=== PATIENT | female | born 1995 | race Hispanic/Latino ===

== ENCOUNTER 2025-02-06 19:09 | Emergency (ER) | payer BC, MEDICAID ==
[~2025-02-06] VITALS: Ht 149.9 cm; Wt 103.4 kg
[2025-02-06 19:43] LABS: APPEARANCE,URINE CLOUDY (CLEAR); GLUCOSE, URINE (UA) NEGATIVE (NEGATIVE); LEUKOCYTE ESTERASE ,URINE 75 Leu/uL (NEGATIVE); NITRATE,URINE NEGATIVE (NEGATIVE); OCCULT BLOOD,URINE +- (TRACE) (NEGATIVE)
[2025-02-06 19:45] LABS: ADD UA MICROSCOPIC YES
[2025-02-06] MEDS: 0.9%NACL 1000ML 1,000 ML IV STA (19:52)
[2025-02-06 19:54] LABS: IMMATURE GRANULOCYTE ABSOLUTE 0.03 K/uL (0-1); NUCLEATED RED BLOOD CELLS 0.0 % (0.0-0.19); PLATELET COUNT (AUTO) 294 K/uL (130-400); RED BLOOD CELL COUNT(AUTO) 4.92 MIL/uL (4.00-5.50); RED CELL DISTRIBUTION WIDTH 11.9 % (11.0-15.5); WHITE BLOOD COUNT (AUTO) 9.0 K/uL (4.8-10.8)
[2025-02-06 20:02] LABS: OTHER CASTS, URINE 2 /LPF (None Seen); SQUAMOUS EPITHELIAL CELL,UR FEW /HPF (0-2); UNCLASSIFIED CRYSTAL 2 /HPF (None Seen)
[2025-02-06 20:04] LABS: CREATININE 0.6 mg/dL (0.5-1.0); GLOMERULAR FILTR. RATE CALC 126.0 mL/min (>90); GLUCOSE,RANDOM 111.0 mg/dL (70-105); SODIUM SERUM 141.0 mmol/L (136-145); UREA NITROGEN, BLOOD 5.0 mg/dL (7-18)
[2025-02-06 20:15] LABS: HCG,QUANTITATIVE 0.0 mIU/mL (0-5)
--- NOTE | 2025-02-06 20:20 | ERN ---
ED Note History of Present Illness Stated Complaint: C/O ABD PAIN RADIATING TO BACK Chief Complaint: Abdominal Pain Time Seen by MD: 19:13 Time Seen by Midlevel: 19:14 Dictation: 29-year-old female coming in with complaints of epigastric pain and right upper quadrant pain onset yesterday. Patient states she has had this pain intermittently for the last couple of years however recently had a ultrasound of her right upper quadrant done at [facility] last night and was told she had gallbladder stones and was discharge. Patient states after being discharged the pain returned and decided to come to the ER and be re-evaluated. Denies any fever, nausea or vomiting. Allergies: Coded Allergies: No Known Allergies (Unverified Allergy, Unknown, 02/06/25) Past Medical History Past Medical History: No Pertinent History Surgical History: None LMP: Jan 31, 2025 Review of System Dictation Constitutional: Negative for fever,chills, and weight loss Eyes: Negative for injury, pain,redness, and discharge ENT: Negative for injury,pain or swelling Cardiovascular: Negative for chest pain, palpitations, and edema Respiratory: Negative for shortness of breath, cough, and wheezing, Abdomen/GI: Abdominal pain, nausea, vomiting, no diarrhea, and no constipation Back: Negative for injury and pain : Negative for injury, bleeding and discharge MS/Extremity: Negative for injury and deformity Skin: Negative for rash, and discoloration Neuro: Negative for headache, weakness, numbness, tingling, and seizure Psych: Negative for suicide ideation, homicidal ideation, and hallucinations Review of Systems: was completed Initial Vital Sign VS Vital Signs Date Time Temp Pulse Resp B/P (MAP) Pulse Ox O2 Delivery O2 Flow Rate FiO2 02/06/25 19:13 98.2 108 20 141/99 99 Room Air 02/06/25 19:43 0 21 Physical Exam Dictation General: awake, alert, NAD Head/Face: Normocephalic, atraumatic Eyes: PERRL, EOMI, vision at baseline ENT: oral cavity clear, TMs clear, no signs of infection Neck: Trachea midline, supple, no nuchal rigidity Cardiovascular: RRR, normal S1/S2, No MRGs, no JVD Respiratory: CTAB, no respiratory distress, No rales or wheezes Abdomen: Soft, non-tender, non-distended, normal bowel sounds, no guarding or rebound. Skin: Warm, dry, normal turgor, no rash MS/Extremity: Pulses equal, no cyanosis, neurovascular intact, FROM Neuro: COAx4, GCS 15, strength 5/5, CN 2-12 intact, normal cerebellar exam, normal gait, Psych: Normal behavior, mood, and affect normal Results (Laboratory/Radiology) Laboratory/Radiology Laboratory Tests Test 02/06/25 19:23 02/06/25 19:40 Urine Color LIGHT-YELLOW (YELLOW) Urine Appearance CLOUDY (CLEAR) H Urine pH 5.5 (5.0-8.0) Urine Specific [place] 1.007 (1.001-1.031) Urine Protein NEGATIVE mg/dL (NEGATIVE) Urine Glucose (UA) NEGATIVE mg/dL (NEGATIVE) Urine Ketones NEGATIVE mg/dL (NEGATIVE) Urine Occult Blood +- (TRACE) (NEGATIVE) H Urine Nitrate NEGATIVE (NEGATIVE) Urine Bilirubin NEGATIVE mg/dL (NEGATIVE) Urine Urobilinogen 0.2 mg/dL (0.2-1.0) Urine Leukocyte Esterase 75 [place]/uL (NEGATIVE) H Urine RBC 2-5 /HPF (0-1) H Urine WBC 6-10 /HPF (0-1) H Urine Squamous Epithelial Cells FEW /HPF (0-2) Urine Other Crystals (Auto) 2 /HPF (None Seen) Urine Bacteria FEW /HPF (None Seen) Urine Other Casts 2 /LPF (None Seen) White Blood Count 9.0 K/uL (4.8-10.8) Red Blood Count 4.92 MIL/uL (4.00-5.50) Hemoglobin 14.2 g/dL (12.0-16.0) Hematocrit 42.5 % (36-48) Mean Corpuscular Volume 86.4 fL (79-99) Mean Corpuscular Hemoglobin 28.9 pg (27.0-33.0) Mean Corpuscular Hemoglobin Concent 33.4 g/dL (32.0-36.0) Red Cell Distribution Width 11.9 % (11.0-15.5) Platelet Count 294 K/uL (130-400) Mean Platelet Volume 9.5 fL (7.5-10.5) Immature Granulocyte % (Auto) 0.3 % (0-1) Neutrophils (%) (Auto) 74.6 % (40.0-77.0) Lymphocytes (%) (Auto) 18.4 % (21.0-51.0) L Monocytes (%) (Auto) 5.4 % (3.0-13.0) Eosinophils (%) (Auto) 0.9 % (0.0-8.0) Basophils (%) (Auto) 0.4 % (0.0-5.0) Neutrophils # (Auto) 6.7 K/uL (1.8-7.7) Lymphocytes # (Auto) 1.7 K/uL (1.0-4.8) Monocytes # (Auto) 0.5 K/uL (0.1-1.0) Eosinophils # (Auto) 0.08 K/uL (0.00-0.70) Basophils # (Auto) 0.04 K/uL (0.00-0.20) Absolute Immature Granulocyte (auto 0.03 K/uL (0-1) Nucleated Red Blood Cells 0.0 % (0.0-0.19) Sodium Level 141 mmol/L (136-145) Potassium Level 3.8 mmol/L (3.5-5.1) Chloride Level 104 mmol/L (101-111) Carbon Dioxide Level 26 mmol/L (21-32) Blood Urea Nitrogen 5 mg/dL (7-18) L Creatinine 0.6 mg/dL (0.5-1.0) Glomerular Filtration Rate Calc 126 mL/min (>90) Random Glucose 111 mg/dL (70-105) H Total Calcium 8.7 mg/dL (8.5-10.1) Total Bilirubin 0.3 mg/dL (0.2-1.0) Direct Bilirubin 0.1 mg/dL (0.0-0.3) Aspartate Amino Transf (AST/SGOT) 20 U/L (10-37) Alanine Aminotransferase (ALT/SGPT) 35 U/L (12-78) Alkaline Phosphatase 59 U/L (50-136) Total Protein 7.8 g/dL (6.0-8.3) Albumin 4.0 g/dL (3.5-5.0) Lipase 38 U/L (16-77) Human Chorionic Gonadotropin, Quant 0 mIU/mL (0-5) Labs Reviewed?: Yes ED Course ED Course Orders Procedure Category Date Status Time Cbc With Differential LAB 02/06/25 Complete 19:23 Basic Metabolic Panel LAB 02/06/25 Complete 19:23 Urinalysis Profile LAB 02/06/25 Complete 19:23 Hcg,Quantitative LAB 02/06/25 Complete 19:23 Us Abdominal Ruq\Ltd US 02/06/25 Taken 19:23 0.9%Nacl 1000ml (Ns PHA 02/06/25 In Process 1000ml) 19:23 Ondansetron 4mg Inj PHA 02/06/25 Complete (Zofran 4mg Inj) 19:30 Ketorolac PHA 02/06/25 Complete Tromethamine 15mg/Ml 19:30 Culture Urine KATIE 02/06/25 In Process 19:47 Lipase LAB 02/06/25 Complete 20:14 Hepatic Function Panel LAB 02/06/25 Complete 20:14 Current Medications Medications (Trade) Dose Ordered Sig/Abisai Route PRN Reason Start Time Stop Time Status Last Admin Dose Admin Ketorolac Tromethamine (toRADol) 15 mg ONCE ONCE IV 02/06/25 19:30 02/06/25 19:31 DC 02/06/25 19:51 Ondansetron HCl (zoFRAN 4MG INJ) 4 mg ONCE ONCE IVP 02/06/25 19:30 02/06/25 19:31 DC 02/06/25 19:50 Sodium Chloride 1,000 ml @ 100 mls/hr Q10H STAT IV 02/06/25 19:23 02/07/25 05:22 02/06/25 19:52 Vital Signs Date Time Temp Pulse Resp B/P (MAP) Pulse Ox O2 Delivery O2 Flow Rate FiO2 02/06/25 19:43 98.8 94 18 130/74 100 Room Air* 0 21 02/06/25 19:13 98.2 108 20 141/99 99 Room Air Medical Decision Making MDM MDM: 29-year-old female coming in with complaints of epigastric pain and right upper quadrant pain onset yesterday. Patient states she has had this pain intermittently for the last couple of years however recently had a ultrasound of her right upper quadrant done at [facility] last night and was told she had gallbladder stones and was discharge. Patient states after being discharged the pain returned and decided to come to the ER and be re-evaluated. Denies any fever, nausea or vomiting. Lab work is unremarkable. Patient does not have any leukocytosis, no transaminitis and lipase within normal range. Preliminary report of the ultrasound shows multiple stones, wall measuring 3 mm, CBD is5 mm. Discussed with the patient on findings. Educated that she needs to follow up with a PCP and with a general surgeon to have this gallbladder removed as an outpatient. Educated that I will discharge her with the pain medication and antiemetics and educated to return to the hospital if she is unable to keep any medication or food down despite being on the medications. Patient verbalized understanding, answered all questions Differential diagnosis: Cholecystitis, cholelithiasis, pancreatitis Rationale: Tests considered and ordered secondary to shared decision making include: Previous outside records reviewed: Old ER visits. Risk of complication and/or morbidity or mortality of patient management: None Medications-Per medication reconciliation Need for hospitalization: Patient does not meet criteria for hospitalization. Need for emergency major/minor surgery: No There are no social concerns with this patient. Prescription drug management Prescriptions will include symptomatic care Patient's prior external medical records from other ER visits were reviewed by me as indicated. Prior testing and results from previous visits were reviewed. Prior tests were taken into account with medical decision making and resource utilization, independent historian/historians were used to obtain complete medical history. I independently interpreted the test that were performed, results were reviewed by me and considered findings on radiology if ordered. Medical management and examination interpretation discussions were had by me with other qualified healthcare professionals as indicated for the patient's care. DX & DISP Disposition: Discharge Departure Impression: Primary Impression: Cholelithiases Additional Impression: Biliary colic Condition: Stable Additional Instructions: Your ultrasound showed you have multiple gallbladder stones however gallbladder wall is within normal range. Your lab work looks normal. Your liver and pancreatic exams are within normal range. Avoid these flares by avoiding any spicy, greasy, or fried foods. Follow up with your primary doctor in 1-2 days. It also make an appointment with a general surgeon for elective surgery. Referrals: SELF,REFERRAL (PCP) IAN MELO MD Time of Disposition: 20:55 LILIAM ALEXIS [facility] Feb 06, 2025 20:20
[2025-02-06 20:35] LABS: ASPARTATE AMINOTRANSFERASE 20.0 U/L (10-37); TOTAL PROTEIN, SERUM 7.8 g/dL (6.0-8.3)
--- NOTE | 2025-02-06 21:18 | HMCIMG ---
EXAM: US Abdomen, Right Upper Quadrant. CLINICAL HISTORY: Right upper quadrant pain; history of gallstones. TECHNIQUE: Right upper quadrant sonography performed with image documentation. COMPARISON: None provided. FINDINGS: LIVER: Enlarged in size, measuring 16.1 cm with diffusely increased echogenicity suggestive of grade I fatty change. No focal hepatic mass is seen. GALLBLADDER: Multiple small intraluminal calculi are seen. Mild diffuse wall thickening measuring approximately 3 mm. No pericholecystic fluid. COMMON BILE DUCT: Normal in caliber. No dilation. PANCREAS: The visualized portions of the pancreas appear within normal limits. The distal pancreas is obscured by bowel gas. RIGHT KIDNEY: Unremarkable. Normal renal contours. No renal mass or calculus. No hydronephrosis. IMPRESSION: 1. Cholelithiasis with questionable acute cholecystitis. Recommend a HIDA scan for further evaluation. 2. Hepatomegaly with grade I fatty liver. /Dave
[2025-02-06 22:05] VITALS: BP 131/71; PULSE 87; RESP 18; TEMP 98.8; O2SAT 100
== END 2025-02-06 22:13 | disposition home or self-care (01) ==
LOC: EDH 19:09
DX: K80.20 Calculus of gallbladder without cholecystitis without obstruction (principal)
CPT/HCPCS: 99284; 96374; 76705; 96361; 96375; 80076; 80048; 84702; 83690; 85025; 87086; 81001; 36415; J1885; J7030; J2405

== ENCOUNTER 2025-03-05 23:23 | Inpatient (IN) | payer SELFPAY ==
[~2025-03-05] VITALS: Ht 149.9 cm; Wt 102.4 kg
[2025-03-05 23:52] LABS: APPEARANCE,URINE CLEAR (CLEAR); GLUCOSE, URINE (UA) NEGATIVE (NEGATIVE); LEUKOCYTE ESTERASE ,URINE 250 Leu/uL (NEGATIVE); NITRATE,URINE NEGATIVE (NEGATIVE); OCCULT BLOOD,URINE NEGATIVE (NEGATIVE)
[2025-03-05 23:53] LABS: HCG,QUALITATIVE URINE NEGATIVE (NEGATIVE)
[2025-03-05 23:55] LABS: SQUAMOUS EPITHELIAL CELL,UR MOD /HPF (0-2)
[2025-03-06] VITALS (19 sets, daily range): BP systolic 17–125; BP diastolic 60–89; PULSE 74–94; RESP 15–21; TEMP 97.7–98.2; O2SAT 97–99
[2025-03-06 00:44] LABS: IMMATURE GRANULOCYTE ABSOLUTE 0.03 K/uL (0-1); NUCLEATED RED BLOOD CELLS 0.0 % (0.0-0.19); PLATELET COUNT (AUTO) 297 K/uL (130-400); RED BLOOD CELL COUNT(AUTO) 4.91 MIL/uL (4.00-5.50); RED CELL DISTRIBUTION WIDTH 12.1 % (11.0-15.5); WHITE BLOOD COUNT (AUTO) 9.2 K/uL (4.8-10.8)
[2025-03-06 00:45] LABS: INR 0.99 (0.85-1.15)
[2025-03-06 00:53] LABS: CREATININE 0.6 mg/dL (0.5-1.0); GLOMERULAR FILTR. RATE CALC 126.0 mL/min (>90); GLUCOSE,RANDOM 150.0 mg/dL (70-105); SODIUM SERUM 134.0 mmol/L (136-145); UREA NITROGEN, BLOOD 7.0 mg/dL (7-18)
[2025-03-06 00:57] LABS: ASPARTATE AMINOTRANSFERASE 17.0 U/L (10-37); TOTAL PROTEIN, SERUM 8.2 g/dL (6.0-8.3)
[2025-03-06] MEDS ORDERED: CEPH500B PO (01:36)
--- NOTE | 2025-03-06 01:36 | ERN ---
General Chief Complaint: Abdominal Pain Stated Complaint: C/O RUQ PAIN WITH N X V Time Seen by MD: 23:29 History of Present Illness Initial Comments 49-year-old female came with abdominal pain. Allergies: Coded Allergies: No Known Allergies (Unverified Allergy, Unknown, 02/06/25) Past Medical History Past Medical History: No Pertinent History Past Surgical History: None Female( History) LMP: Feb 02, 2025 ROS Dictation Abdominal pain Physical Exam General Appearance: (+) no apparent distress Neck: (+) normal inspection, (+) supple Respiratory: (+) chest non-tender, (+) lungs clear Heart: (+) regular, (+) no gallop Gastrointestinal: (+) soft, (+) non-tender, (+) no organomegaly, (+) bowel sound present Results Laboratory and Microbiology Lab and Micro Result Laboratory Tests Test 03/05/25 23:41 03/05/25 23:59 Urine Color LIGHT-YELLOW (YELLOW) Urine Appearance CLEAR (CLEAR) Urine pH 6.0 (5.0-8.0) Urine Specific [place] 1.022 (1.001-1.031) Urine Protein NEGATIVE mg/dL (NEGATIVE) Urine Glucose (UA) NEGATIVE mg/dL (NEGATIVE) Urine Ketones NEGATIVE mg/dL (NEGATIVE) Urine Occult Blood NEGATIVE (NEGATIVE) Urine Nitrate NEGATIVE (NEGATIVE) Urine Bilirubin NEGATIVE mg/dL (NEGATIVE) Urine Urobilinogen 0.2 mg/dL (0.2-1.0) Urine Leukocyte Esterase 250 [place]/uL (NEGATIVE) H Urine RBC 2-5 /HPF (0-1) H Urine WBC 11-25 /HPF (0-1) H Urine Squamous Epithelial Cells MOD /HPF (0-2) Urine Bacteria None /HPF (None Seen) Urine HCG, Qualitative NEGATIVE (NEGATIVE) White Blood Count 9.2 K/uL (4.8-10.8) Red Blood Count 4.91 MIL/uL (4.00-5.50) Hemoglobin 14.4 g/dL (12.0-16.0) Hematocrit 42.3 % (36-48) Mean Corpuscular Volume 86.2 fL (79-99) Mean Corpuscular Hemoglobin 29.3 pg (27.0-33.0) Mean Corpuscular Hemoglobin Concent 34.0 g/dL (32.0-36.0) Red Cell Distribution Width 12.1 % (11.0-15.5) Platelet Count 297 K/uL (130-400) Mean Platelet Volume 10.5 fL (7.5-10.5) Immature Granulocyte % (Auto) 0.3 % (0-1) Neutrophils (%) (Auto) 78.7 % (40.0-77.0) H Lymphocytes (%) (Auto) 15.0 % (21.0-51.0) L Monocytes (%) (Auto) 5.0 % (3.0-13.0) Eosinophils (%) (Auto) 0.7 % (0.0-8.0) Basophils (%) (Auto) 0.3 % (0.0-5.0) Neutrophils # (Auto) 7.3 K/uL (1.8-7.7) Lymphocytes # (Auto) 1.4 K/uL (1.0-4.8) Monocytes # (Auto) 0.5 K/uL (0.1-1.0) Eosinophils # (Auto) 0.06 K/uL (0.00-0.70) Basophils # (Auto) 0.03 K/uL (0.00-0.20) Absolute Immature Granulocyte (auto 0.03 K/uL (0-1) Nucleated Red Blood Cells 0.0 % (0.0-0.19) Prothrombin Time 10.5 SEC (9.6-11.6) Prothromb Time International Ratio 0.99 (0.85-1.15) Activated Partial Thromboplast Time 27.7 SEC (26.3-35.5) Sodium Level 134 mmol/L (136-145) L Potassium Level 4.0 mmol/L (3.5-5.1) Chloride Level 101 mmol/L (101-111) Carbon Dioxide Level 26 mmol/L (21-32) Blood Urea Nitrogen 7 mg/dL (7-18) Creatinine 0.6 mg/dL (0.5-1.0) Glomerular Filtration Rate Calc 126 mL/min (>90) Random Glucose 150 mg/dL (70-105) H Lactic Acid Level 1.7 mmol/L (0.8-2.5) Total Calcium 9.1 mg/dL (8.5-10.1) Total Bilirubin 0.4 mg/dL (0.2-1.0) Direct Bilirubin 0.1 mg/dL (0.0-0.3) Aspartate Amino Transf (AST/SGOT) 17 U/L (10-37) Alanine Aminotransferase (ALT/SGPT) 39 U/L (12-78) Alkaline Phosphatase 59 U/L (50-136) Total Protein 8.2 g/dL (6.0-8.3) Albumin 4.0 g/dL (3.5-5.0) Lipase 38 U/L (16-77) Serum Test, Qualitative NEGATIVE (NEGATIVE) MDM MDM: Differential diagnosis: Rationale: Tests considered and ordered secondary to shared decision making include: Previous outside records reviewed: Old ER visits. Risk of complication and/or morbidity or mortality of patient management: None Medications-Per medication reconciliation Need for hospitalization: Patient does not meet criteria for hospitalization. Need for emergency major/minor surgery: No There are no social concerns with this patient. Prescription drug management Prescriptions will include symptomatic care Patient's prior external medical records from other ER visits were reviewed by me as indicated. Prior testing and results from previous visits were reviewed. Prior tests were taken into account with medical decision making and resource utilization, independent historian/historians were used to obtain complete medical history. I independently interpreted the test that were performed, results were reviewed by me and considered findings on radiology if ordered. Medical management and examination interpretation discussions were had by me with other qualified healthcare professionals as indicated for the patient's care. ED Course Orders Procedure Category Date Status Time Basic Metabolic Panel LAB 03/05/25 Complete 23:29 Hepatic Function Panel LAB 03/05/25 Complete 23:29 Cbc With Differential LAB 03/05/25 Complete 23:29 Lactic Acid LAB 03/05/25 Complete 23:29 Lipase LAB 03/05/25 Complete 23:29 ,Urine Test LAB 03/05/25 Complete 23:29 Testing, LAB 03/05/25 Complete Serum Hcg 23:29 Pt And Ptt LAB 03/05/25 Complete 23:29 Urinalysis LAB 03/05/25 Complete W/Microscopic 23:29 Ondansetron 4mg Inj PHA 03/05/25 Complete (Zofran 4mg Inj) 23:30 Morphine 2mg Syg PHA 03/05/25 Complete (Morphine 2mg Syg) 23:30 Famotidine 20mg Vial PHA 03/05/25 Complete (Pepcid 20mg Vial) 23:30 Culture Urine KATIE 03/05/25 In Process 23:54 Current Medications Medications (Trade) Dose Ordered Sig/Abisai Route PRN Reason Start Time Stop Time Status Last Admin Dose Admin Famotidine (Pepcid 20mg Vial) 20 mg ONCE ONCE IV 03/05/25 23:30 03/05/25 23:35 DC Morphine Sulfate (morPHINE 2MG SYG) 2 mg ONCE ONCE IVP 03/05/25 23:30 03/05/25 23:35 DC Ondansetron HCl (zoFRAN 4MG INJ) 4 mg ONCE ONCE IVP 03/05/25 23:30 03/05/25 23:35 DC Vital Signs Date Time Temp Pulse Resp B/P (MAP) Pulse Ox O2 Delivery O2 Flow Rate FiO2 03/05/25 23:25 97.7 93 20 145/90 99 Room Air DX & DISP Disposition: Discharge Departure Impression: Primary Impression: UTI (urinary tract infection) Condition: Stable Scripts Cephalexin Monohydrate (Keflex) 500 Mg Cap 500 MG PO BID for 7 Days, #14 CAP Prov: BAUDILIO PERALES MD 03/06/25 Referrals: SELF,REFERRAL (PCP) BAUDILIO PERALES MD Mar 06, 2025 01:36
[2025-03-06] MEDS: FAMOTIDINE 20MG VIAL IV ONE (02:08)
--- NOTE | 2025-03-06 04:06 | HMCIMG ---
EXAM: US Abdomen (limited). CLINICAL HISTORY: r/o acute sintia TECHNIQUE: Real-time ultrasound of the abdomen (limited) with image documentation. COMPARISON: 02/06/2025. FINDINGS: Mildly enlarged liver measures 17.7 cm craniocaudally. Increased echogenicity of the liver parenchyma, compatible with fatty liver. There are multiple calculi within the gallbladder. Gallbladder wall thickening measures up to 3 mm. Hydropic gallbladder measures up to 11 cm in length. The CBD is normal in caliber and measures up to 5 mm in diameter. Partially visualized pancreas due to the overlying bowel gases. The right kidney measures 9.9 x 4.4 x 4.8 cm. It is normal in size and texture. IMPRESSION: Cholelithiasis with questionable acute cholecystitis. Recommend a HIDA scan for further evaluation. Mild fatty liver. Compared to the prior study, there is no significant interval change. /Dave
--- NOTE | 2025-03-06 04:46 | HP ---
[facility] HISTORY [facility] PHYSICAL Date of Service: Mar 06, 2025 Time of Service: 04:36 PCP: Self-referral HISTORY OF PRESENT ILLNESS: This is a 29-year-old female with no pertinent medical history who presents to the ED for complaints of abdominal pain located around right upper quadrant associated with nausea and vomiting x1.Patient reports she had a [place] sandwich from [employer] prior to having abdominal pain she said.Patient states she was here last 02/06/2025 for similar complaints and an abdominal ultrasound was done and showed cholelithiasis and hepatomegaly with grade 1 fatty liver and was sent home today the pain came back and radiates to her back,so she decided to come for evaluation .Patient states she has a normal bowel movement today. Seen and examined patient in the ED awake,alert and coherent,appears uncomfortable continue to complain of abdominal pain.Patient denies fever,chills,chest pain,palpitation,cough and shortness of breath. Latest vital signs temperature 97.7, heart rate 62, blood pressure 98/53 saturation 99% on room air. Labs: CBC unremarkable. Sodium 134, glucose 150 for enzymes normal serum test negative. Urinalysis consistent with urinary tract infection. Ultrasound result revealed cholelithiasis with questionable acute cholecystitis recommend a HIDA scan for further evaluation. Mild fatty liver. While in the ER patient received morphine 2 mg IV, Zofran 4 mg IV and famotidine 20 mg IV. We will admit patient for further medical management. REVIEW OF SYSTEMS CONSTITUTIONAL: Denies fevers, chills, or night sweats. No unintentional weight loss reported. NEUROLOGICAL: Denies headache, amaurosis fugax, motor weakness, sensory deficit, vertigo/spinning sensation, gait abnormalities, or tremors. ENT: No hearing loss, otalgia, otorrhea, rhinitis, rhinorrhea, hoarseness, or sore throat. CARDIOVASCULAR: Denies any exertional angina, dyspnea on exertion, orthopnea, paroxysmal nocturnal dyspnea, palpitations, life-threatening arrhythmias, claudication. PULMONARY: Denies any shortness of breath, cough, phlegm/sputum, hemoptysis, pleuritic chest pain. SLEEP: Denies morning headaches, daytime somnolence or napping. Denies difficulty falling asleep, staying asleep, waking from sleep. Denies knowledge of snoring. GASTROINTESTINAL: Complain of abdominal pain located around right upper quadrant associated with nausea and vomiting x1 Denies any type of dysphagia to either liquids or solids. Denies pyrosis, early satiety, abdominal pain, diarrhea, constipation, or changes in stool consistency or caliber. Denies coffee-ground emesis, hematemesis, hematochezia, or melanotic stools. GENITOURINARY: Denies frequency, urgency, nocturia, hematuria or incontinence (Storage/Irritative symptoms.) Low urinary stream, straining to void, urinary intermittency or hesitancy, splitting of the voiding stream, terminal dribbling. ENDOCRINOLOGIC: Denies polyuria, polydipsia, polyphagia or heat/cold intolerances. HEMATOLOGIC: Denies thrombophilia/previous clots, or coagulopathy/bleeding diso rders. ONCOLOGIC: Denies personal history of malignancy. DERMATOLOGIC: Denies rashes or pruritus. PSYCHIATRIC: Denies any suicidal or homicidal ideation. Denies hallucinations. PAST MEDICAL HISTORY: [ Pertinent medical history ] PAST SURGICAL HISTORY: [ No pertinent surgical history ] PAST SOCIAL HISTORY: [ Patient lives with . Patient admits to social three beers every other weekend. Patient denies cigarette and recreational drug use.] FAMILY HISTORY: [Noncontributory ] Coded Allergies: No Known Allergies (Unverified Allergy, Unknown, 02/06/25) PHYSICAL EXAM GENERAL APPEARANCE: The patient is awake, alert, and oriented, in no acute cardiopulmonary distress. NEUROLOGICAL: Cranial nerves II-XII grossly intact. Motor is 5/5 in bilateral upper and lower extremities proximal to distal. No sensory deficits. HEENT: Face is symmetric. Pupils are equal and reactive. Extraocular movements are intact. NECK: Supple. No JVD. No thyromegaly. No submental, submandibular, pre- /postauricular, occipital or supraclavicular lymphadenopathy. CHEST: Normal chest expansion. No Telemetry. LUNGS: Absence of any rales, rhonchi or any wheezing. CARDIOVASCULAR: Regular. S1 and S2 normal. No appreciable rubs, murmurs or gallops. ABDOMEN: Abdominal tenderness around right upper quadrant on palpation and radiates to the back Soft and nondistended. There is no rebound, voluntary guarding, or rigidity. : Deferred. No P[place]. EXTREMITIES: Non-edematous and not cyanotic. No clubbing. Good capillary refill. SKIN: No skin breakdown. Vital Sign (Last 24 Hours) 03/05/25 03/06/25 23:25 04:04 Temp 97.7 Pulse 62 Resp 18 B/P (MAP) 98/53 Pulse Ox 99 O2 Delivery Room Air* O2 Flow Rate 0 FiO2 21 LABS: Laboratory: Test 03/05/25 23:59 03/05/25 23:41 Range/Units White Blood Count 9.2 4.8-10.8 K/uL Red Blood Count 4.91 4.00-5.50 MIL/uL Hemoglobin 14.4 12.0-16.0 g/dL Hematocrit 42.3 36-48 % Mean Corpuscular Volume 86.2 79-99 fL Mean Corpuscular Hemoglobin 29.3 27.0-33.0 pg Mean Corpuscular Hemoglobin Concent 34.0 32.0-36.0 g/dL Red Cell Distribution Width 12.1 11.0-15.5 % Platelet Count 297 130-400 K/uL Mean Platelet Volume 10.5 7.5-10.5 fL Immature Granulocyte % (Auto) 0.3 0-1 % Neutrophils (%) (Auto) 78.7 H 40.0-77.0 % Lymphocytes (%) (Auto) 15.0 L 21.0-51.0 % Monocytes (%) (Auto) 5.0 3.0-13.0 % Eosinophils (%) (Auto) 0.7 0.0-8.0 % Basophils (%) (Auto) 0.3 0.0-5.0 % Neutrophils # (Auto) 7.3 1.8-7.7 K/uL Lymphocytes # (Auto) 1.4 1.0-4.8 K/uL Monocytes # (Auto) 0.5 0.1-1.0 K/uL Eosinophils # (Auto) 0.06 0.00-0.70 K/uL Basophils # (Auto) 0.03 0.00-0.20 K/uL Absolute Immature Granulocyte (auto 0.03 0-1 K/uL Nucleated Red Blood Cells 0.0 0.0-0.19 % Prothrombin Time 10.5 9.6-11.6 SEC Prothromb Time International Ratio 0.99 0.85-1.15 Activated Partial Thromboplast Time 27.7 26.3-35.5 SEC Sodium Level 134 L 136-145 mmol/L Potassium Level 4.0 3.5-5.1 mmol/L Chloride Level 101 101-111 mmol/L Carbon Dioxide Level 26 21-32 mmol/L Blood Urea Nitrogen 7 7-18 mg/dL Creatinine 0.6 0.5-1.0 mg/dL Glomerular Filtration Rate Calc 126 >90 mL/min Random Glucose 150 H 70-105 mg/dL Lactic Acid Level 1.7 0.8-2.5 mmol/L Total Calcium 9.1 8.5-10.1 mg/dL Total Bilirubin 0.4 0.2-1.0 mg/dL Direct Bilirubin 0.1 0.0-0.3 mg/dL Aspartate Amino Transf (AST/SGOT) 17 10-37 U/L Alanine Aminotransferase (ALT/SGPT) 39 12-78 U/L Alkaline Phosphatase 59 50-136 U/L Total Protein 8.2 6.0-8.3 g/dL Albumin 4.0 3.5-5.0 g/dL Lipase 38 16-77 U/L Serum Test, Qualitative NEGATIVE NEGATIVE Urine Color LIGHT-YELLOW YELLOW Urine Appearance CLEAR CLEAR Urine pH 6.0 5.0-8.0 Urine Specific [place] 1.022 1.001-1.031 Urine Protein NEGATIVE NEGATIVE mg/dL Urine Glucose (UA) NEGATIVE NEGATIVE mg/dL Urine Ketones NEGATIVE NEGATIVE mg/dL Urine Occult Blood NEGATIVE NEGATIVE Urine Nitrate NEGATIVE NEGATIVE Urine Bilirubin NEGATIVE NEGATIVE mg/dL Urine Urobilinogen 0.2 0.2-1.0 mg/dL Urine Leukocyte Esterase 250 H NEGATIVE [place]/uL Urine RBC 2-5 H 0-1 /HPF Urine WBC 11-25 H 0-1 /HPF Urine Squamous Epithelial Cells MOD 0-2 /HPF Urine Bacteria None None Seen /HPF Urine HCG, Qualitative NEGATIVE NEGATIVE DIAGNOSTICS / RADIOLOGY: [ ] ASSESSMENT: Acute cholelithiasis with acute cholecystitis per CT POA Acute urinary tract infection POA Hyperglycemia POA Morbid obesity POA Mild fatty liver per CT POA PLAN: We will admit patient in medical surgical We will keep nothing by mouth We will start on NS @ 100 ml / hr x one bag and re evaluate Start Rocephin 1 g IV b.i.d. for empiric coverage We will start on famotidine 20 mg IV daily for GI prophylaxis We will replace electrolytes as needed per protocol We will add prn medication for fever,pain,cough , nausea and vomiting We will request for HIDA scan We will seek general surgery consultation We will request labs in am Further orders to follow depending on above results Case discussed with attending physician and came up with above treatment and plan of care. ADVANCED CARE PLANNING 1. Which of the following were discussed? Hospice Care - No Therapeutic options - Yes Advance Directives - No Other discussions - 2. Discussed with who? Patient 3. Voluntary nature of this service was explained to the patient? Yes 4. Amount of time spent - ___20 min____ 5. Reviewed by Physician? (if this service was performed by NPP) Yes Patient seen and examined by me. Agree with note by [employer] INSERTER SEE ADDITIONAL ORDERS PER CHART DISCUSSED WITH NURSING STAFF MIKAELA FRENCH LAUNDRY AIDE Mar 06, 2025 04:46
[2025-03-06] MEDS: 0.9%NACL 1000ML 1,000 ML IV SCH (05:04)
[2025-03-06] MEDS ORDERED: DICY20TA3 PO (05:46)
[2025-03-06] MEDS: FAMOTIDINE 20MG VIAL IV SCH (10:32)
[2025-03-06 10:56] LABS: NUCLEATED RED BLOOD CELLS 0.0 % (0.0-0.19); PLATELET COUNT (AUTO) 290.0 K/uL (130-400); RED BLOOD CELL COUNT(AUTO) 4.84 MIL/uL (4.00-5.50); RED CELL DISTRIBUTION WIDTH 12.0 % (11.0-15.5); WHITE BLOOD COUNT (AUTO) 8.4 K/uL (4.8-10.8)
[2025-03-06 11:08] LABS: CREATININE 0.5 mg/dL (0.5-1.0); GLOMERULAR FILTR. RATE CALC 132.0 mL/min (>90); GLUCOSE,RANDOM 105.0 mg/dL (70-105); SODIUM SERUM 136.0 mmol/L (136-145); UREA NITROGEN, BLOOD 6.0 mg/dL (7-18)
[2025-03-06 11:11] LABS: ASPARTATE AMINOTRANSFERASE 16.0 U/L (10-37); TOTAL PROTEIN, SERUM 7.5 g/dL (6.0-8.3)
--- NOTE | 2025-03-06 11:35 | NUR ---
DCP: HOME sw met with pt and family at bedside. Pt lives with Giuliano Pena [phone] in home they own. Pt is currently switching jobs and will start new job at [employer] next week. Currently has no insurance. PCP is her uncle Dr Manpreet Johnson in [facility]. No DMe or HH, independent of all ADLS. [place] home at [place]
--- NOTE | 2025-03-06 16:20 | CONS ---
CONSULT NOTE: Consulting physician: Dr. Chowdhury Consulting service: General surgery Reason for consultation: Acute cholecystitis History of present illness: This is a 29-year-old female consulted to surgery after presenting to the hospital with the abdominal discomfort. Patient initially diagnosed earlier this month with cholelithiasis and followed up with our surgical group with scheduled surgery later this month but due to current flare-up presented to the hospital for further evaluation. Initial imaging concerning for possible cholecystitis. Patient has undergone 1st portion of HIDA scan. Patient remains NPO. Patient with right upper quadrant pain on physical exam. WBCs unremarkable. Patient's NPO on IV fluids and IV antibiotics Medical history: Known cholelithiasis Surgical history: Review of systems: General: No Fever, No Chills, No Night Sweats, No Fatigue, No Malaise, No Appetite, No Other HEENT: No Head Aches, No Visual Changes, No Eye Pain, No Ear Pain, No Dysphasi a, No Sinus Congestion, No Post Nasal Drip, No Sore Throat, No Other Pulmonary: No Dyspnea, No Cough, No Pleuritic Chest Pain, No Other Cardiovascular: No: Chest Pain, Palpitations, Orthopnea, Paroxysmal No Dyspnea, Edema, Lt Headedness, Other Gastrointestinal: No: Nausea, Vomiting, Diarrhea, Constipation, Melena, Hematochezia, Other Genitourinary: No Dysuria, No Frequency, No Incontinence, No Hematuria, No Retention, No Other Musculoskeletal: No: other, neck pain, shoulder pain, arm pain, back pain, hand pain, leg pain, foot pain Skin: No Urticaria, No Rash, No Other Neurological: No: Weakness, Numbness, Incoordination, Change in speech, Confusion, Seizures, Other Physical exam: General: Awake alert and oriented Heart: Regular rate and rhythm} Lungs: [Clear to auscultation no distress Abdomen: Right upper quadrant pain Assessment: This is a 29-year-old female with concerns of acute cholecystitis Plan: At this point in time patient will be scheduled for cholecystectomy today with Dr. Segovia Patient to remain NPO Surgical team to follow patient closely Patient informed of surgical procedure risks and benefits and agrees with surgical intervention at this time. Surgical case has been discussed with my supervising physician in the above plan was formulated and agreed upon Supervising physicians evaluation the patient be done within next 24 hours We appreciate the hospitalist team for us to participate in patient's care. Greater than 55 minutes of time spent patient, reviewing chart, working on documentation AI HAYDEN Jr. PAC Mar 06, 2025 16:20
--- NOTE | 2025-03-06 16:24 | HMCIMG ---
Examination Hepatobiliary study History 29 YEAR OLD FEMALE INPATIENT STAT STAT STAT PATIENT HX: RUQ PAIN ORDER DX: SUSPECTED GALLSTONES US 03/06/25 LIVER 17.7cm, MULTIPLE STONES, CBD 5mm Tc99m Choletec ( 6.5mCi ) ADMINISTERED VIA IV PHYSICIAN NEEDS RESULTS FOR SURGERY FOR TODAY (Hx) / suspected gsllstones with cholecystits, Statics (DICOM Hx) (DICOM Hx) Technique 6.5 mCi Tc-99m mebrofenin were administered intravenously followed by acquisition of planar images of the abdomen. Findings Following administration of radiotracer, there is prompt appearance of normal hepatic contours, followed by appearance of activity in unremarkable appearing bile ducts. There is nonvisualization of the gallbladder reflecting acute cholecystitis. IMPRESSION: 1. Nonvisualization of the gallbladder, consistent with acute cholecystitis. /[place]
--- NOTE | 2025-03-06 19:28 | NUR ---
PT TAKEN TO OR FOR SURGERY. SPOUSE TOOK PURSE WITH PERSONAL BELONGING WITH HIM
[2025-03-06] MEDS: INDOCYANINE GREEN 25 MG VIAL IJ ONE (20:00)
[2025-03-06] MEDS ORDERED: PROMETHAZINE HCL 25 MG/ML 1ML AMPULE IM PRN (20:00)
[2025-03-06] MEDS ORDERED: MIDAZOLAM HCL 1 MG/ML 2ML VIAL ONE (20:17)
[2025-03-06] MEDS ORDERED: LIDOCAINE HCL MPF 1% 5ML VIAL ONE (20:18)
--- NOTE | 2025-03-06 21:30 | OP ---
Operative Note: DATE OF PROCEDURE: 03/06/25 PROCEDURE PERFORMED: Robotic cholecystectomy. PREOPERATIVE DIAGNOSIS: Acute cholecystitis POSTOPERATIVE DIAGNOSIS: same ANESTHESIA: General endotracheal. SURGEON: Mary Segovia MD DEVICE LEFT IN PLACE: None. FLUIDS AND BLOOD PRODUCTS: Per anesthesia report. SPECIMENS REMOVED: Gallbladder. COMPLICATIONS: None immediate. PATIENT CONDITION: Stable. Blood loss: Minimal DESCRIPTION OF PROCEDURE: The patient was brought to the operating room and placed on the operating table in a supine position. Once general endotracheal anesthesia was achieved the patient's abdomen is prepped and draped in sterile fashion. Had then proceeded to create a transverse incision at the left upper quadrant at aldridge's point and under direct visualization went through the abdominal wall with a 5 mm Optiview entered the abdominal cavity and obtain a pneumoperitoneum. After obtaining pneumoperitoneum we placed under direct visualization to 8 mm trocars one in the far right flank and the other one in the right lower abdomen. I then switched out the 5 mm trocar in the left upper quadrant for 8 mm trocar. And then placed another 8 mm trocar in the left hemiabdomen to the left of the midline through the rectus muscle for the camera. Place the patient in reverse Trendelenburg and rotated to the left. Brought the robot over top of the patient right and docked the robot. There was significant amount of adhesions to the gallbladder that were taken down with the cautery with dissection. I had to decompress the gallbladder so that we were able to retract it. I then proceeded to retract the gallbladder from the fundus and infundibulum and started our dissection of the hilum. We bluntly dissected the hilum to expose the cystic duct and cystic artery and once we had a critical view for safety, which was confirmed with firefly technology. We proceeded to place two clips in the cystic duct proximally and distally. We divided and then did the same with our cystic artery. We then proceeded to remove the gallbladder off the liver bed using Bovie cautery. Once this was done, we then proceeded to evaluate the liver bed for hemostasis. We made sure there was no bile leaks or any bleeding. I then proceeded to bring the 5 mm Endo-Catch bag through the lateral right port. Placed the gallbladder within the bag . We then proceeded to remove the trocar in this area and dilated the muscle with a hemostat and proceeded to remove the gallbladder through this right lateral port. I then closed the muscle with a running 2-0 V lock suture. We then proceeded to undocked our all her instruments and the robot. Removed all the trocars from the abdominal wall confirmed no bleeding. the skin incisions were closed using skin stapler had an abscess a sterile dressing was applied. The patient tolerated the procedure well. All counts correct x2 at the end of the procedure MARY SEGOVIA MD Mar 06, 2025 21:30
[2025-03-07] VITALS (10 sets, daily range): BP systolic 94–111; BP diastolic 57–68; PULSE 66–110; RESP 16–20; TEMP 97.2–98.2; O2SAT 94–97
[2025-03-07 04:32] LABS: IMMATURE GRANULOCYTE ABSOLUTE 0.03 K/uL (0-1); NUCLEATED RED BLOOD CELLS 0.0 % (0.0-0.19); PLATELET COUNT (AUTO) 278 K/uL (130-400); RED BLOOD CELL COUNT(AUTO) 4.70 MIL/uL (4.00-5.50); RED CELL DISTRIBUTION WIDTH 12.3 % (11.0-15.5); WHITE BLOOD COUNT (AUTO) 10.7 K/uL (4.8-10.8)
[2025-03-07 04:46] LABS: ASPARTATE AMINOTRANSFERASE 35.0 U/L (10-37); CREATININE 0.7 mg/dL (0.5-1.0); GLOMERULAR FILTR. RATE CALC 121.0 mL/min (>90); GLUCOSE,RANDOM 168.0 mg/dL (70-105); SODIUM SERUM 135.0 mmol/L (136-145); TOTAL PROTEIN, SERUM 7.2 g/dL (6.0-8.3); UREA NITROGEN, BLOOD 8.0 mg/dL (7-18)
[2025-03-07 04:56] LABS: ERYTHROCYTE SEDIMENTATION RATE 19 MM/HR (0-20)
--- NOTE | 2025-03-07 12:35 | PN ---
[facility] PROGRESS NOTE Date of Service: Mar 07, 2025 Time of Service: 12:28 SUBJECTIVE: [Patient seen and evaluated this morning. She is status post robotic cholecystectomy for acute cholecystitis. She is ambulating in the hallway. Reports persistent abdominal pain, currently rated 10/10, but is tolerating her current clear liquid diet and has not had further episodes of nausea or vomit ing. Denies fever, chills, chest pain, shortness of breath, or new symptoms. No urinary complaints (denies dysuria, frequency, urgency, hematuria, or suprapubic pain). REVIEW OF SYSTEMS CONSTITUTIONAL: Denies fevers, chills, or night sweats. No unintentional weight loss reported. NEUROLOGICAL: Denies headache, amaurosis fugax, motor weakness, sensory deficit, vertigo/spinning sensation, gait abnormalities, or tremors. ENT: No hearing loss, otalgia, otorrhea, rhinitis, rhinorrhea, hoarseness, or sore throat. CARDIOVASCULAR: Denies any exertional angina, dyspnea on exertion, orthopnea, paroxysmal nocturnal dyspnea, palpitations, life-threatening arrhythmias, claudication. PULMONARY: Denies any shortness of breath, cough, phlegm/sputum, hemoptysis, pleuritic chest pain. SLEEP: Denies morning headaches, daytime somnolence or napping. Denies difficulty falling asleep, staying asleep, waking from sleep. Denies knowledge of snoring. GASTROINTESTINAL: Complain of abdominal pain located around right upper quadrant associated with nausea and vomiting x1 Denies any type of dysphagia to either liquids or solids. Denies pyrosis, early satiety, abdominal pain, diarrhea, constipation, or changes in stool consistency or caliber. Denies coffee-ground emesis, hematemesis, hematochezia, or melanotic stools. GENITOURINARY: Denies frequency, urgency, nocturia, hematuria or incontinence (Storage/Irritative symptoms.) Low urinary stream, straining to void, urinary intermittency or hesitancy, splitting of the voiding stream, terminal dribbling. ENDOCRINOLOGIC: Denies polyuria, polydipsia, polyphagia or heat/cold intolerances. HEMATOLOGIC: Denies thrombophilia/previous clots, or coagulopathy/bleeding disorders. ONCOLOGIC: Denies personal history of malignancy. DERMATOLOGIC: Denies rashes or pruritus. PSYCHIATRIC: Denies any suicidal or homicidal ideation. Denies hallucinations. PHYSICAL EXAM GENERAL APPEARANCE: The patient is awake, alert, and oriented, in no acute cardiopulmonary distress. NEUROLOGICAL: Cranial nerves II-XII grossly intact. Motor is 5/5 in bilateral upper and lower extremities proximal to distal. No sensory deficits. HEENT: Face is symmetric. Pupils are equal and reactive. Extraocular movements are intact. NECK: Supple. No JVD. No thyromegaly. No submental, submandibular, pre- /postauricular, occipital or supraclavicular lymphadenopathy. CHEST: Normal chest expansion. No Telemetry. LUNGS: Absence of any rales, rhonchi or any wheezing. CARDIOVASCULAR: Regular. S1 and S2 normal. No appreciable rubs, murmurs or gallops. ABDOMEN: Abdominal tenderness around right upper quadrant on palpation and radiates to the back Soft and nondistended. There is no rebound, voluntary guarding, or rigidity. : Deferred. No Pryor. EXTREMITIES: Non-edematous and not cyanotic. No clubbing. Good capillary refill. SKIN: No skin breakdown. Vital Signs (last 8hr) Date Time Temp Pulse Resp B/P (MAP) Pulse Ox O2 Delivery O2 Flow Rate FiO2 03/07/25 12:00 98.1 67 20 104/57 97 Room Air 03/07/25 08:16 98.1 105 19 106/67 94 Room Air LABS: WBC within normal limits Electrolytes: Sodium 134, glucose 150, otherwise unremarkable Urinalysis: Positive leukocyte esterase, WBCs 1125/hpf, moderate squamous epithelial cells, no bacteria seen Urine culture: [id number] CFU/mL Proteus species (sensitivities pending) Imaging: Post-op, no acute findings Laboratory: Test 03/07/25 04:21 03/06/25 10:47 03/05/25 23:59 03/05/25 23:41 Range/Units White Blood Count 10.7 # 4.8-10.8 K/uL Red Blood Count 4.70 4.00-5.50 MIL/uL Hemoglobin 13.7 12.0-16.0 g/dL Hematocrit 40.3 36-48 % Mean Corpuscular Volume 85.7 79-99 fL Mean Corpuscular Hemoglobin 29.1 27.0-33.0 pg Mean Corpuscular Hemoglobin Concent 34.0 32.0-36.0 g/dL Red Cell Distribution Width 12.3 11.0-15.5 % Platelet Count 278 130-400 K/uL Mean Platelet Volume 9.9 7.5-10.5 fL Immature Granulocyte % (Auto) 0.3 0-1 % Neutrophils (%) (Auto) 93.8 H 40.0-77.0 % Lymphocytes (%) (Auto) 5.1 L 21.0-51.0 % Monocytes (%) (Auto) 0.7 L 3.0-13.0 % Eosinophils (%) (Auto) 0.0 0.0-8.0 % Basophils (%) (Auto) 0.1 0.0-5.0 % Neutrophils # (Auto) 10.1 H 1.8-7.7 K/uL Lymphocytes # (Auto) 0.6 L 1.0-4.8 K/uL Monocytes # (Auto) 0.1 0.1-1.0 K/uL Eosinophils # (Auto) 0.00 0.00-0.70 K/uL Basophils # (Auto) 0.01 0.00-0.20 K/uL Absolute Immature Granulocyte (auto 0.03 0-1 K/uL Nucleated Red Blood Cells 0.0 0.0-0.19 % White Cell Morphology Comment See comments Erythrocyte Sedimentation Rate 19 0-20 MM/HR Sodium Level 135 L 136-145 mmol/L Potassium Level 4.0 3.5-5.1 mmol/L Chloride Level 103 101-111 mmol/L Carbon Dioxide Level 23 21-32 mmol/L Blood Urea Nitrogen 8 7-18 mg/dL Creatinine 0.7 0.5-1.0 mg/dL Glomerular Filtration Rate Calc 121 >90 mL/min Random Glucose 168 #H 70-105 mg/dL Total Calcium 7.9 L 8.5-10.1 mg/dL Magnesium Level 1.90 1.80-2.40 mg/dL Total Bilirubin 0.4 # 0.2-1.0 mg/dL Direct Bilirubin 0.1 0.0-0.3 mg/dL Aspartate Amino Transf (AST/SGOT) 35 10-37 U/L Alanine Aminotransferase (ALT/SGPT) 47 # 12-78 U/L Alkaline Phosphatase 58 50-136 U/L Total Protein 7.2 6.0-8.3 g/dL Albumin 3.3 L 3.5-5.0 g/dL Hemoglobin A1c 6.0 4.0-6.0 % Estimated Average Glucose (eAG) 126 70-126 mg/dL Prothrombin Time 10.5 9.6-11.6 SEC Prothromb Time International Ratio 0.99 0.85-1.15 Activated Partial Thromboplast Time 27.7 26.3-35.5 SEC Lactic Acid Level 1.7 0.8-2.5 mmol/L Lipase 38 16-77 U/L Serum Test, Qualitative NEGATIVE NEGATIVE Urine Color LIGHT-YELLOW YELLOW Urine Appearance CLEAR CLEAR Urine pH 6.0 5.0-8.0 Urine Specific [place] 1.022 1.001-1.031 Urine Protein NEGATIVE NEGATIVE mg/dL Urine Glucose (UA) NEGATIVE NEGATIVE mg/dL Urine Ketones NEGATIVE NEGATIVE mg/dL Urine Occult Blood NEGATIVE NEGATIVE Urine Nitrate NEGATIVE NEGATIVE Urine Bilirubin NEGATIVE NEGATIVE mg/dL Urine Urobilinogen 0.2 0.2-1.0 mg/dL Urine Leukocyte Esterase 250 H NEGATIVE [place]/uL Urine RBC 2-5 H 0-1 /HPF Urine WBC 11-25 H 0-1 /HPF Urine Squamous Epithelial Cells MOD 0-2 /HPF Urine Bacteria None None Seen /HPF Urine HCG, Qualitative NEGATIVE NEGATIVE Current Medications Medications (Trade) Dose Ordered Sig/Abisai Route PRN Reason Start Time Stop Time Status Last Admin Dose Admin Ceftriaxone Sodium 1 gm/ Sodium Chloride 50 ml @ 100 mls/hr BID IV 03/06/25 09:00 03/06/25 04:57 DC Ceftriaxone Sodium (ROCEphine 1G INJ) 1 gm Q12H IVPB 03/06/25 05:00 03/06/25 23:35 DC 03/06/25 23:20 1 GM Ceftriaxone Sodium (ROCEphine 1G INJ) 1 gm Q24H IVPB 03/06/25 23:45 03/06/25 23:36 DC Ceftriaxone Sodium (ROCEphine 1G INJ) 1 gm Q24H IVPB 03/07/25 23:00 03/16/25 22:59 Famotidine (Pepcid 20mg Vial) 20 mg DAILY IV 03/06/25 09:00 04/05/25 08:59 03/07/25 09:20 20 MG Fentanyl Citrate (FENTanyl CITRate PF 50 MCG/ 1 ML 2ML VIAL) 25 mcg Q5MIN PRN IVP PAIN LEVEL 7 TO 10 11/5/25 20:00 03/07/25 07:25 DC 03/06/25 21:51 25 MCG Ketorolac Tromethamine (toRADol) 15 mg Q6H PRN IV MILD PAIN (1-3) 03/06/25 05:00 03/11/25 04:59 03/06/25 05:38 15 MG Ketorolac Tromethamine (toRADol) 30 mg AD PRN IV MODERATE PAIN (4-6) 03/06/25 20:00 03/07/25 07:25 DC Metoclopramide HCl (regLAN 10MG IV) 10 mg AD PRN IVP NAUSEA/VOMITING 03/06/25 20:00 03/07/25 07:25 DC Morphine Sulfate (morPHINE 2MG SYG) 2 mg AD PRN IVP PAIN LEVEL 4 TO 6 03/06/25 20:00 03/06/25 23:52 DC Morphine Sulfate (morPHINE 4MG SYG) 2 mg Q4H PRN IVP SEVERE PAIN (7-10) 03/06/25 23:55 03/07/25 09:20 2 MG Naloxone HCl (NARcan 0.4mg/1 mL) 0.1 mg AD PRN IVP RESPIRATORY SYMPTOMS 03/06/25 20:00 03/07/25 07:25 DC Ondansetron HCl (zoFRAN 4MG INJ) 4 mg AD PRN IVP NAUSEA/VOMITING 03/06/25 20:00 03/07/25 07:25 DC 03/06/25 22:00 4 MG Promethazine HCl (Phenergan) 25 mg AD PRN IM NAUSEA/VOMITING 03/06/25 20:00 03/07/25 07:25 DC Simethicone (Mylicon) 80 mg TIDP PO 03/07/25 00:00 04/06/25 00:00 Sodium Chloride 1,000 ml @ 100 mls/hr Q10H IV 03/06/25 05:00 04/05/25 04:59 03/06/25 05:04 100 MLS/HR DIAGNOSTICS / RADIOLOGY: [ ] ASSESSMENT: Acute cholecystitis, s/p robotic cholecystectomy (03/06/25) Postoperative pain Asymptomatic bacteriuria (Proteus species, low colony count, no symptoms) Hyperglycemia Morbid obesity Mild fatty liver PLAN: Continue to monitor post-op recovery; advance diet as tolerated per surgery Continue pain management per protocol Continue IV fluids (NS at 100 mL/hr) Continue GI and DVT prophylaxis Antibiotics: Patient is currently on ceftriaxone 1g IV q24h for perioperative coverage. No further antibiotics are indicated for asymptomatic bacteriuria; will discontinue antibiotics once perioperative course is complete, unless raad ent develops symptoms or other indication arises. Monitor for development of urinary symptoms; reassess if symptoms develop Monitor electrolytes and replace as needed Repeat labs in AM Case discussed with Dr. Marie; plan reviewed and agreed upon ATTESTATION BY PHYSICIAN I have seen and examined the patient. I reviewed the documentation, medical decision making, and treatment plan as noted by the mid-level provider above. I agree with the findings and plan of care. MEL MARIE MD, [facility]ICE [facility] Mar 07, 2025 12:35
--- NOTE | 2025-03-07 19:11 | PN ---
GENERAL SURGERY PROGRESS NOTE Date/Time Patient Seen: [ 03/07/2025 1800] Interval History: [29-year-old female, postop day 1., robotic cholecystectomy by Patient is complaining of increased right upper quadrant tenderness Patient denies any nausea or vomiting Patient has been tolerating regular diet Patient states she has been passing gas but no bowel movement yet WBCs 10.7 H&H 13.7 and 40 0.3 Bilirubin 0.4 ] Current Medications Medications (Trade) Dose Ordered Sig/Abisai Route Start Time Stop Time Status Last Admin Dose Admin Ceftriaxone Sodium 1 gm/ Sodium Chloride 50 ml @ 100 mls/hr BID IV 03/06/25 09:00 03/06/25 04:57 DC Ceftriaxone Sodium (ROCEphine 1G INJ) 1 gm Q12H IVPB 03/06/25 05:00 03/06/25 23:35 DC 03/06/25 23:20 1 GM Ceftriaxone Sodium (ROCEphine 1G INJ) 1 gm Q24H IVPB 03/06/25 23:45 03/06/25 23:36 DC Ceftriaxone Sodium (ROCEphine 1G INJ) 1 gm Q24H IVPB 03/07/25 23:00 03/16/25 22:59 Famotidine (Pepcid 20mg Vial) 20 mg DAILY IV 03/06/25 09:00 04/05/25 08:59 03/07/25 09:20 20 MG Simethicone (Mylicon) 80 mg TIDP PO 03/07/25 00:00 04/06/25 00:00 Sodium Chloride 1,000 ml @ 100 mls/hr Q10H IV 03/06/25 05:00 04/05/25 04:59 03/06/25 05:04 100 MLS/HR Physical Examination: GENERAL: [No acute distress, female, comfortably resting in bed with significant other at bedside.] HEAD: [Normocephalic.] EYES: [Nonicteric sclera bilaterally.] ENT: [Hearing grossly intact.] NECK: [Supple without JVD] LUNGS: [Clear breath sounds bilaterally.] HEART: [Normal rate and rhythm.] VASC: [Peripheral pulses +2 bilaterally.] ABD: [RUQ tenderness, no guarding or rigidity Bowel sounds normal, soft, surgical incisions with edges well approximated with spencer, no drainage.] : [Not examined] EXT: [No edema.] SKIN: [No rashes or lesions noted.] NEURO: [Awake, alert, and oriented x3. No focal sensory or strength deficits noted.] Vital Signs (last 8hr) Date Time Temp Pulse Resp B/P (MAP) Pulse Ox O2 Delivery O2 Flow Rate FiO2 03/07/25 16:00 98.1 69 20 104/64 97 Room Air 03/07/25 12:00 98.1 67 20 104/57 97 Room Air Laboratory: [ ] Hematology Labs: Test 03/07/25 04:21 Range/Units White Blood Count 10.7 # 4.8-10.8 K/uL Red Blood Count 4.70 4.00-5.50 MIL/uL Hemoglobin 13.7 12.0-16.0 g/dL Hematocrit 40.3 36-48 % Mean Corpuscular Volume 85.7 79-99 fL Mean Corpuscular Hemoglobin 29.1 27.0-33.0 pg Mean Corpuscular Hemoglobin Concent 34.0 32.0-36.0 g/dL Red Cell Distribution Width 12.3 11.0-15.5 % Platelet Count 278 130-400 K/uL Mean Platelet Volume 9.9 7.5-10.5 fL Immature Granulocyte % (Auto) 0.3 0-1 % Neutrophils (%) (Auto) 93.8 H 40.0-77.0 % Lymphocytes (%) (Auto) 5.1 L 21.0-51.0 % Monocytes (%) (Auto) 0.7 L 3.0-13.0 % Eosinophils (%) (Auto) 0.0 0.0-8.0 % Basophils (%) (Auto) 0.1 0.0-5.0 % Neutrophils # (Auto) 10.1 H 1.8-7.7 K/uL Lymphocytes # (Auto) 0.6 L 1.0-4.8 K/uL Monocytes # (Auto) 0.1 0.1-1.0 K/uL Eosinophils # (Auto) 0.00 0.00-0.70 K/uL Basophils # (Auto) 0.01 0.00-0.20 K/uL Absolute Immature Granulocyte (auto 0.03 0-1 K/uL Nucleated Red Blood Cells 0.0 0.0-0.19 % White Cell Morphology Comment See comments Erythrocyte Sedimentation Rate 19 0-20 MM/HR Chemistry Labs: Test 03/07/25 04:21 03/06/25 10:47 03/05/25 23:59 Range/Units Sodium Level 135 L 136-145 mmol/L Potassium Level 4.0 3.5-5.1 mmol/L Chloride Level 103 101-111 mmol/L Carbon Dioxide Level 23 21-32 mmol/L Blood Urea Nitrogen 8 7-18 mg/dL Creatinine 0.7 0.5-1.0 mg/dL Glomerular Filtration Rate Calc 121 >90 mL/min Random Glucose 168 #H 70-105 mg/dL Total Calcium 7.9 L 8.5-10.1 mg/dL Magnesium Level 1.90 1.80-2.40 mg/dL Total Bilirubin 0.4 # 0.2-1.0 mg/dL Direct Bilirubin 0.1 0.0-0.3 mg/dL Aspartate Amino Transf (AST/SGOT) 35 10-37 U/L Alanine Aminotransferase (ALT/SGPT) 47 # 12-78 U/L Alkaline Phosphatase 58 50-136 U/L Total Protein 7.2 6.0-8.3 g/dL Albumin 3.3 L 3.5-5.0 g/dL Hemoglobin A1c 6.0 4.0-6.0 % Estimated Average Glucose (eAG) 126 70-126 mg/dL Lactic Acid Level 1.7 0.8-2.5 mmol/L Lipase 38 16-77 U/L Serum Test, Qualitative NEGATIVE NEGATIVE Coagulation Labs: Test 03/05/25 23:59 Range/Units Prothrombin Time 10.5 9.6-11.6 SEC Prothromb Time International Ratio 0.99 0.85-1.15 Activated Partial Thromboplast Time 27.7 26.3-35.5 SEC Diagnostics / Radiology: [Copy/Paste Echos/Imaging Report here] Impression and Plan: [ 29-year-old female, postop day 1., robotic cholecystectomy by Dr. Segovia Complaining of increased right upper quadrant pain, patient requesting to stay in hospital 1 more night due to pain We will repeat labs in a.m. Patient encouraged to continue ambulating If patient is doing better tomorrow, may be discharged home Surgical team will continue to follow Dr. Segovia updated on patient's status Surgical case has been discussed with my supervising physician Plan of care was formulated and agreed upon We appreciate the hospitalist team for allowing us to participate in this patient's care Greater than 45 minutes spent examining patient, reviewing chart and working on documentation] ATTESTATION BY PHYSICIAN I have seen and examined the patient. I reviewed the documentation, medical decision making, and treatment plan as noted by the mid-level provider above. I agree with the findings and plan of care. MD ANTONIO STUBBS LETICIA A [facility] Mar 07, 2025 19:11
[2025-03-08] VITALS: BP 95/59; PULSE 86; RESP 18; TEMP 98.4
[2025-03-08 04:00] VITALS: BP 93/56; PULSE 73; RESP 18; TEMP 98.1
[2025-03-08 04:53] LABS: IMMATURE GRANULOCYTE ABSOLUTE 0.03 K/uL (0-1); NUCLEATED RED BLOOD CELLS 0.0 % (0.0-0.19); PLATELET COUNT (AUTO) 260 K/uL (130-400); RED BLOOD CELL COUNT(AUTO) 4.12 MIL/uL (4.00-5.50); RED CELL DISTRIBUTION WIDTH 12.3 % (11.0-15.5); WHITE BLOOD COUNT (AUTO) 7.3 K/uL (4.8-10.8)
[2025-03-08 05:16] LABS: ASPARTATE AMINOTRANSFERASE 28.0 U/L (10-37); CREATININE 0.5 mg/dL (0.5-1.0); GLOMERULAR FILTR. RATE CALC 132.0 mL/min (>90); GLUCOSE,RANDOM 129.0 mg/dL (70-105); SODIUM SERUM 138.0 mmol/L (136-145); TOTAL PROTEIN, SERUM 6.3 g/dL (6.0-8.3); UREA NITROGEN, BLOOD 13.0 mg/dL (7-18)
[2025-03-08] MEDS ORDERED: AMOX1TAB16 PO (07:49)
[2025-03-08] MEDS ORDERED: IBUP-2076 PO (07:49)
[2025-03-08 08:00] VITALS: BP 98/59; PULSE 86; RESP 18; TEMP 98.4
[2025-03-08] MEDS: PoTASSium chloRIDE 20MEQ ER 20 MEQ ERTAB PO ONE (09:26)
--- NOTE | 2025-03-08 10:39 | DS ---
Discharge Summary Hospital Course Summary: Nallely Holloway, a 29-year-old female with no significant past medical history, was admitted on 03/05/25 for evaluation and management of acute right upper quadrant abdominal pain associated with nausea and vomiting. She had a prior ED visit on 02/06/25 for similar symptoms, with imaging at that time revealing cholelithiasis and mild fatty liver. On this admission, her abdominal ultrasound again demonstrated cholelithiasis w ith concern for acute cholecystitis. Laboratory studies were notable for mild hyperglycemia, hyponatremia, and urinalysis consistent with a urinary tract infection. She was afebrile and hemodynamically stable throughout her stay. Empiric IV antibiotics (ceftriaxone) and supportive care were initiated, and a general surgery consult was obtained. On 03/06/25, the patient underwent a robotic cholecystectomy without intraoperative complications. The gallbladder was removed successfully, and there was no evidence of bile leak or bleeding. Postoperatively, she remained hemodynamically stable and afebrile. She tolerated a regular diet, was able to ambulate, and had no further episodes of nausea or vomiting. She did report some persistent right upper quadrant tenderness on postoperative day 1, but her surgical incisions were clean, dry, and well-approximated. Her postoperative labs showed mild leukocytosis and neutrophilia, but no significant abnormalities in liver function or coagulation studies. Her urine culture grew Proteus mirabilis, and she was transitioned to oral Augmentin (amoxicillin-clavulanate) 800/125 mg every 12 hours for 7 days at discharge to complete treatment for her urinary tract infection. The patient remained afebrile and hemodynamically stable throughout her hospitalization. She was able to tolerate a soft diet, ambulate, and had no new complaints on the day of discharge. Discharge instructions were reviewed with the patient, including follow-up with her primary care provider and general surgeon. She verbalized understanding of her care plan. Microarray Analyst(s): Dr. Nye- General surgeon Procedure(s): OPERATIVE REPORT Name: NALLELY HOLLOWAY Acct: [id number] MR: [id number] : 1995 Admit Date: 03/05/25 MARY NYE MD [place] [address] [place] [id number] Operative Note: DATE OF PROCEDURE: 03/06/25 PROCEDURE PERFORMED: Robotic cholecystectomy. PREOPERATIVE DIAGNOSIS: Acute cholecystitis POSTOPERATIVE DIAGNOSIS: same ANESTHESIA: General endotracheal. SURGEON: Mary Nye MD DEVICE LEFT IN PLACE: None. FLUIDS AND BLOOD PRODUCTS: Per anesthesia report. SPECIMENS REMOVED: Gallbladder. COMPLICATIONS: None immediate. PATIENT CONDITION: Stable. Blood loss: Minimal DESCRIPTION OF PROCEDURE: The patient was brought to the operating room and placed on the operating table in a supine position. Once general endotracheal anesthesia was achieved the patient's abdomen is prepped and draped in sterile fashion. Had then proceeded to create a transverse incision at the left upper quadrant at aldridge's point and under direct visualization went through the abdominal wall with a 5 mm Optiview entered the abdominal cavity and obtain a pneumoperitoneum. After obtaining pneumoperitoneum we placed under direct visualization to 8 mm trocars one in the far right flank and the other one in the right lower abdomen. I then switched out the 5 mm trocar in the left upper quadrant for 8 mm trocar. And then placed another 8 mm trocar in the left hemiabdomen to the left of the midline through the rectus muscle for the camera. Place the patient in reverse Trendelenburg and rotated to the left. Brought the robot over top of the patient right and docked the robot. There was significant amount of adhesions to the gallbladder that were taken d own with the cautery with dissection. I had to decompress the gallbladder so that we were able to retract it. I then proceeded to retract the gallbladder from the fundus and infundibulum and started our dissection of the hilum. We bluntly dissected the hilum to expose the cystic duct and cystic artery and once we had a critical view for safety, which was confirmed with firefly technology. We proceeded to place two clips in the cystic duct proximally and distally. We divided and then did the same with our cystic artery. We then proceeded to remove the gallbladder off the liver bed using Bovie cautery. Once this was done, we then proceeded to evaluate the liver bed for hemostasis. We made sure there was no bile leaks or any bleeding. I then proceeded to bring the 5 mm Endo-Catch bag through the lateral right port. Placed the gallbladder within the bag . We then proceeded to remove the trocar in this area and dilated the muscle with a hemostat and proceeded to remove the gallbladder through this right lateral port. I then closed the muscle with a running 2-0 V lock suture. We then proceeded to undocked our all her instruments and the robot. Removed all the trocars from the abdominal wall confirmed no bleeding. the skin incisions were closed using skin stapler had an abscess a sterile dressing was applied. The patient tolerated the procedure well. All counts correct x2 at the end of the procedure MARY NYE MD Mar 06, 2025 21:30 Electronically Signed by: MARY NYE [id number] Electronically Co-Signed by: Assessment/Plan: Discharge diagnoses Acute cholecystitis status post robotic cholecystectomy Urinary tract infection due to Proteus mirabilis ASSESSMENT: Acute cholecystitis, s/p robotic cholecystectomy (03/06/25) Postoperative pain Asymptomatic bacteriuria (Proteus species, low colony count, no symptoms) Hyperglycemia Morbid obesity Mild fatty liver Discharge Instructions: 1. Activity Resume light activity as tolerated. Avoid heavy lifting (>10 lbs), strenuous exercise, or vigorous activity for at least 2 weeks or until cleared by your surgeon. Walk daily to promote circulation and prevent blood clots. You may shower 24 hours after surgery. Avoid soaking in bathtubs, pools, or hot tubs until incisions are fully healed. 2. Wound Care Keep surgical incisions clean and dry. Inspect incisions daily for signs of infection (redness, swelling, warmth, drainage, or increased pain). If you have spencer, follow up as instructed for staple removal. If dressings are present, change as directed or if they become wet or soiled. 3. Medications Amoxicillin-clavulanate 875/125 mg: Take one tablet by mouth every 12 hours for 7 days to complete your course for urinary tract infection. Take all medications as prescribed, including any pain medications or stool softeners if needed. Do not take NSAIDs (ibuprofen, naproxen) unless approved by your provider. 4. Diet Resume a regular diet as tolerated. Start with light, low-fat meals and advance as tolerated. Drink plenty of fluids. Avoid fatty, greasy, or spicy foods for the first week after surgery. 5. Bowel and Bladder Care It is normal to have some changes in bowel habits after surgery. Use stool softeners if needed to avoid constipation. Monitor for any burning, urgency, or difficulty urinating. Complete your antibio tic course as prescribed. 6. Follow-Up Schedule follow-up appointments with your primary care provider and general surgeon as instructed. If you have spencer, arrange for removal as directed (usually 714 days post- op). 7. When to Seek Medical Attention Call your provider or go to the emergency department if you experience: Fever >101F (38.3C) or chills Increasing redness, swelling, warmth, or drainage from incisions Severe or worsening abdominal pain Persistent nausea or vomiting Jaundice (yellowing of skin or eyes) Shortness of breath, chest pain, or palpitations Inability to urinate or new urinary symptoms 8. Additional Instructions Complete your full course of antibiotics. Bring a list of your medications to all follow-up appointments. If you have any questions or concerns, contact your provider Home Medications: Reported Medications Dicyclomine HCl (Dicyclomine HCl) 20 Mg Tablet, 1 TAB PO Q6HPRN PRN for PAIN LEVEL 1 TO 5 for 30 Days, #60 TAB 0 Refills 03/06/25 Discontinued Scripts Cephalexin Monohydrate (Keflex) 500 Mg Cap, 500 MG PO BID for 7 Days, #14 CAP Prov:BAUDILIO PERALES MD 03/06/25 Time spent arranging discharge: 31-60 minutes ATTESTATION BY PHYSICIAN I have seen and examined the patient. I reviewed the documentation, medical decision making, and treatment plan as noted by the mid-level provider above. I agree with the findings and plan of care. MEL MARIE MD, JANICE [facility] Mar 08, 2025 10:39
[2025-03-08 12:00] VITALS: BP 101/63; PULSE 73; RESP 18; TEMP 97.7
[2025-03-08] MEDS: SIMETHICONE 80 MG TAB.CHEW PO SCH (16:14)
== END 2025-03-08 14:30 | disposition home or self-care (01) | DRG 418 ==
LOC: EDH 23:23 → EDHIP 23:24 → 4CH 03-06 05:19
PROVIDERS: ADMIT Internal Medicine; ATTEND Internal Medicine
PROC: 8E0W4CZ Robotic Assisted Procedure of Trunk Region, Percutaneous Endoscopic Approach (ICD-10-PCS; 2025-03-06)
PROC: 0FT44ZZ Resection of Gallbladder, Percutaneous Endoscopic Approach (ICD-10-PCS; principal; 2025-03-06 20:16)
DX: K80.00 Calculus of gallbladder with acute cholecystitis without obstruction (principal); E87.1 Hypo-osmolality and hyponatremia; N39.0 Urinary tract infection, site not specified; Z68.42 Body mass index [BMI] 45.0-49.9, adult; K76.0 Fatty (change of) liver, not elsewhere classified; E66.01 Morbid (severe) obesity due to excess calories; K82.8 Other specified diseases of gallbladder
CPT/HCPCS: 36415; 76705; 78226; 80048; 80053; 80076; 81001; 81025; 83036; 83605; 83690; 83735; 84703; 85025; 85027; 85610; 85651; 85730; 87086; 87186; 99285; A9537; G0378; J0696; J1100; J1885; J2250; J2270; J2405; J2704; J3010; J3490; J7030; A4930; A6206; C1769; J0665; J1308